=== PATIENT | male | born 1990 | race Caucasian/White ===

== ENCOUNTER 2019-07-21 13:18 | Emergency (ER) | payer SELFPAY ==
--- NOTE | 2019-07-21 14:59 | RAD ---
Exam: 3 views sacrum and coccyx HISTORY: Patient fell, after being bucked off horse yesterday. Pain FINDINGS: Sacral alar preserved. No evidence of an acute fracture. Irregularity at S3 is age indeterm inant. Visualized bony pelvis is unremarkable IMPRESSION: No obvious acute fracture. Irregularity at S3 is age indeterminate. If there is concern, consider pelvic MRI or CT.
[2019-07-21] MEDS ORDERED: Morphine 4 MG/ML VIAL ONE (15:12)
[2019-07-21] MEDS ORDERED: Ketorolac Tromethamine 60 MG/2 ML VIAL ONE (15:13)
== END 2019-07-21 15:40 | disposition home or self-care (01) ==
LOC: ERS 13:18
DX: S32.2XXA Fracture of coccyx, initial encounter for closed fracture (principal); F41.9 Anxiety disorder, unspecified; F32.9 Major depressive disorder, single episode, unspecified; F17.210 Nicotine dependence, cigarettes, uncomplicated; V80.010A Animal-rider injured by fall from or being thrown from horse in noncollision accident, initial encounter
CPT/HCPCS: 72220; 96372; J1885; J2270

== ENCOUNTER 2020-06-08 01:54 | Emergency (ER) | payer OTHER, SELFPAY ==
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
== END 2020-06-08 02:51 | disposition home or self-care (01) ==
LOC: ERS 01:54
DX: R51 Headache (principal); F41.9 Anxiety disorder, unspecified; V89.2XXA Person injured in unspecified motor-vehicle accident, traffic, initial encounter
CPT/HCPCS: 70450

== ENCOUNTER 2022-09-18 16:12 | Emergency (ER) | payer SELFPAY ==
[2022-09-18 17:06] LABS: #Eosinphils 0.6 thou/uL (0.0-0.7); #Lymphocytes 2.4 thou/uL (1.20-3.40); #Monocytes 0.7 thou/uL (0.11-0.59); #Neutrophils 6.9 thou/uL (1.40-6.50); %Basophils 0.4 % (0.0-1.0); %Eosinophils 5.7 % (0.0-10.0); %Lymphocytes 22.6 % (21.0-51.0); %Monocytes 6.8 % (0.0-10.0); %Neutrophils 64.6 % (42.0-75.0); Hemoglobin 13.7 g/dL (14.0-18.0); Mean Corpuscular HGB CONC 34.1 g/dL (32.0-36.0); Mean Corpuscular Hemoglobin 31.7 pg (27.0-31.0); Platelet Count 247 10x3/uL (130-400); RBC Distribution Width 11.6 % (11.5-14.5); Red Blood Cell (RBC) Count 4.31 mill/uL (4.70-6.10); White Blood Cell (WBC) Count 10.7 10x3/uL (4.8-10.8)
[2022-09-18 17:24] LABS: ALT (SGPT) 12 U/L (8-55); AST (SGOT) 17 U/L (5-34); Albumin 4.4 g/dL (3.5-5.0); Alkaline Phosphatase 103 U/L (40-110); Anion Gap 10 mmol/L (10-20); BUN (Urea Nitrogen) 13 mg/dL (8.9-20.6); Bilirubin, Total 0.7 mg/dL (0.2-1.2); Calc. Creatinine Clearance 0 mL/min (70-130); Calcium 10.1 mg/dL (7.8-10.44); Carbon Dioxide 27 mmol/L (22-29); Chloride 101 mmol/L (98-107); Estimated GFR 107; Globulin 2.8 g/dL (2.4-3.5); Glucose 114 mg/dL (70-105); Magnesium 1.8 mg/dL (1.6-2.6); Potassium 3.2 mmol/L (3.5-5.1); Protein, Total 7.2 g/dL (6.0-8.3); Sodium 135 mmol/L (136-145)
== END 2022-09-18 18:09 | disposition home or self-care (01) ==
LOC: ERS 16:12
DX: I49.9 Cardiac arrhythmia, unspecified (principal); I45.10 Unspecified right bundle-branch block; F41.1 Generalized anxiety disorder
CPT/HCPCS: 36415; 80053; 83735; 84443; 84484; 85025; 93005